=== PATIENT | male | born 2000 | race African-American/Black ===

== ENCOUNTER 2019-10-26 15:44 | Outpatient (CLI) | payer OTHER ==
[2019-10-26] MEDS ORDERED: GADOBUTROL 15 MMOL/15 ML VIAL ONE (16:04)
[2019-10-26] MEDS: GADOBUTROL 15 MMOL/15 ML VIAL IVP ONE (17:11)
--- NOTE | 2019-10-27 13:09 | MRI Report ---
PROCEDURE: Ankle LT W/WO INDICATIONS: PAIN/SWELLING OF LEFT LOWER LEG CONTRAST: IV CONTRAST: Gadavist ml: 12 TECHNIQUE: Noncontrast sagittal T1 spin echo and T2 fast spin echo with fat saturation, axial proton density fas t spin echo and T2 fast spin echo with fat saturation, axial T1 spin echo with fat saturation, mendez l T1 spin echo and T2 fast spin echo with fat saturation through the ankle/hindfoot. Post-contrast a xial, coronal, and sagittal T1 spin echo with fat saturation through the ankle/hindfoot. COMPARISON: None. FINDINGS: Image quality: Diagnostic. Significant patient motion is noted.. Bones and joints: Diffuse soft tissue swelling around ankle joint is seen with subcutaneous soft tiss ue edema. No discrete drainable fluid collection is identified. 10 x 4 x 5 mm cystic area dorsal and lateral to the talonavicular joint is seen and show no contrast enhancement. No suspicious osseous en hancement. No bone marrow contusions or fractures. No hindfoot coalitions. No osteochondral injuri es of the talar dome. No pathologic joint effusions. Medial structures: The posterior tibialis, flexor digitorum longus, and flexor hallucis longus tendo ns are intact. The posterior tibial neurovascular bundle appears normal within the tarsal tunnel, wi thout extrinsic mass effect. The deep and superficial layers of the deltoid ligament appear normal. The spring ligament is intact. Lateral structures: The anterior talofibular, calcaneofibular, and posterior talofibular ligaments a ppear intact. More superiorly, the anterior and posterior tibiofibular ligaments appear normal, as i s the intermalleolar ligament. The peroneus longus and brevis tendons demonstrate normal location an d morphology. The sinus tarsi demonstrates normal fatty signal. Anterior structures: The tibialis anterior, extensor hallucis longus, and extensor digitorum longus tendons appear intact. Posterior and plantar structures: Achilles tendon is intact. Medial and lateral bands of the planta r fascia are of normal thickness. IMPRESSION: 1. Suggestion of extensive cellulitis throughout visualized distal left lower leg, around ankle joint , and extending to visualized midfoot and hindfoot. No discrete drainable abscess collection is seen. 2. No underlying muscle or tendon involvement. Medial and lateral ankle tendons and ligaments are int act. 3. No marrow edema. No abnormal intraosseous enhancement. No fracture or dislocation. 4. 10 x 4 x 5 mm cystic area over dorsal and lateral aspect of talonavicular joint likely representin g small ganglion cyst. Reviewed by: Stefano Adams MD on 10/27/2019 1:08 PM PDT Approved by: Stefano Adams MD on 10/27/2019 1:08 PM PDT Station ID: [id number]
== END 2019-10-26 15:45 | disposition home or self-care (01) ==
LOC: DI 15:44
PROVIDERS: ATTEND Orthopaedic Surgery
DX: R93.6 Abnormal findings on diagnostic imaging of limbs (principal); M25.872 Other specified joint disorders, left ankle and foot
CPT/HCPCS: 73723; A9585

== ENCOUNTER 2019-11-19 02:10 | Emergency (ER) | payer OTHER ==
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
[2019-11-19] MEDS ORDERED: TETANUS/DIPHTHERIA/PERTUSSIS 0.5 ML SYRINGE IM ONE (02:24)
[2019-11-19 02:28] LABS: BASOPHILS # (AUTO) 0.1 10^3/uL (0.0-0.1); BASOPHILS % (AUTO) 0.7 %; EOSINOPHILS # (AUTO) 0.1 10^3/uL (0.0-0.7); EOSINOPHILS % (AUTO) 1.1 %; HGB - HEMOGLOBIN 15.8 g/dL (14.0-18.0); LYMPHOCYTES % (AUTO) 40.1 %; MEAN CORPUSCULAR HEMOGLOBIN 28.5 pg (27.0-31.0); MEAN CORPUSCULAR HGB CONC 33.7 g/dL (32.0-36.0); MEAN CORPUSCULAR VOLUME 84.5 fL (80.0-94.0); MEAN PLATELET VOLUME 9.7 fL (7.4-11.4); MONOCYTES # (AUTO) 0.6 10^3/uL (0.0-1.0); MONOCYTES % (AUTO) 7.5 %; NEUTROPHILS # (AUTO) 3.7 10^3/uL (1.5-6.6); NEUTROPHILS % (AUTO) 49.9 %; PLT - PLATELET COUNT 252 10^3/uL (130-450); RED BLOOD COUNT 5.55 10^6/uL (4.70-6.10); RED CELL DISTRIBUTION WIDTH 12.2 % (12.0-15.0); WHITE BLOOD COUNT 7.5 x10^3/uL (4.8-10.8)
[2019-11-19 02:38] LABS: CALCIUM 9.3 mg/dL (8.5-10.3); CREATININE 1.3 mg/dL (0.6-1.2)
[2019-11-19] MEDS ORDERED: MORPHINE 2 MG/ML CARPUJECT IVP STA (03:06)
[2019-11-19 03:57] VITALS: BP 119/73
== END 2019-11-19 04:06 | disposition short-term general hospital (02) ==
LOC: ED 02:10
DX: S71.132A Puncture wound without foreign body, left thigh, initial encounter (principal); S31.5 Open wound of unspecified external genital organs; W32.0XXA Accidental handgun discharge, initial encounter
CPT/HCPCS: 36415; 80048; 85025; 96374; 99283